=== PATIENT | male | born 1965 | race Caucasian/White ===

== ENCOUNTER → 2019-06-17 15:53 | Outpatient (CLI) | payer OTHER | END | disposition home or self-care (01) | LOC: D.RAD 15:53 | PROVIDERS: ATTEND Emergency Medicine | DX: M79.675 Pain in left toe(s) (principal); E11.9 Type 2 diabetes mellitus without complications ==

== ENCOUNTER → 2019-06-21 13:57 | Outpatient (CLI) | payer OTHER | END | disposition home or self-care (01) | LOC: D.US 06-19 11:30 | PROVIDERS: ATTEND Emergency Medicine | DX: R11.0 Nausea (principal) ==

== ENCOUNTER → 2019-09-18 11:10 | Outpatient (CLI) | payer OTHER | END | disposition home or self-care (01) | LOC: D.NM 11:10 | PROVIDERS: ATTEND Internal Medicine Gastroenterology | DX: R11.2 Nausea with vomiting, unspecified (principal); R10.13 Epigastric pain ==

== ENCOUNTER → 2019-11-13 09:17 | Outpatient (CLI) | payer OTHER | END | disposition home or self-care (01) | LOC: D.OPS 09:17 | PROVIDERS: ATTEND Surgery | DX: K21.9 Gastro-esophageal reflux disease without esophagitis (principal) ==